=== PATIENT | male | born 1975 | race Caucasian/White ===

== ENCOUNTER 2020-12-18 18:21 | Emergency (ER) | payer OTHER, SELFPAY ==
--- NOTE | 2020-12-18 18:21 | ED.EYEPROB ---
HPI - Eye Problem General Chief complaint: Eye Problems Stated complaint: eye irritation Time Seen by Provider: 12/18/20 18:22 Source: patient, RN notes reviewed and old records reviewed Mode of arrival: ambulatory Limitations: no limitations History of Present Illness HPI Narrative: 45-year-old male presents to the [facility] with complaints of thinking he has something in his right eye. States that he was trimming decorative rocks when he felt something in his eye. Had tried washing it out. No other treatment prior to arrival. Denies any blurry vision or change in vision. MD chief complaint: eye redness Related Data Allergies Allergy/AdvReac Type Severity Reaction Status Date / Time No Known Allergies Allergy Unknown Verified 12/18/20 18:26 Review of Systems Review of Systems: All systems reviewed & are unremarkable except as noted in HPI and below Constitutional: Constitutional: Reports no additional constitutional complaints and Denies chills Eyes: Eyes: Reports as per HPI, Denies change in vision and Denies photophobia ENT: Reports system reviewed and no additional complaints, except as documented Cardiovascular: Cardiovascular: Reports no additional cardiovascular complaints Respiratory: Respiratory: Reports no additional respiratory complaints Gastrointestinal: Gastrointestinal: Reports no additional gastrointestinal complaints Musculoskeletal: Musculoskeletal: Reports no additional musculoskeletal complaints Integumentary/Breasts: Skin/Breast: Reports system reviewed and no additional complaints, except as docu Neurologic: Reports system reviewed and no additional complaints, except as documented Psychiatric: Psychiatric: Reports no additional psychiatric complaints Allergic/Immunologic: Allergic/Immunologic: Reports no additional allergic/immunologic complaints [facility] Past Medical History Medical History (Updated 12/18/20 @ 18:40 by Li Santiago) BMI 25.0-25.9,adult Excessive cerumen in left ear canal Right otitis media Family History Family History Grandparent Hypertension Malignant neoplasm of prostate Mother Hypertension Other Carcinoma of colon Social History Social History (Updated 12/18/20 @ 19:53 by Li Santiago) Smoking status: Never smoker Alcohol intake: current Substance use: never Living arrangements: with family Occupation/Education: occupation 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 There is no relevant family history pertinent to the patient complaint. Exam Const: General: healthy appearing, no acute distress and alert Nutritional Appearance: well nourished Orientation/consciousness: patient oriented x3 Limitations: no limitations HENMT: Head: normal to inspection Ears: hearing grossly normal bilaterally, external ears normal and EAC's normal General nose exam: Normal external nose present and Normal nasal mucous membranes and turbinates present Face and sinus: normal facial exam Mouth: Yes Normal oral and palatal mucosa present Throat: posterior oropharynx normal Eyes: Visual Sherwood: normal visual sherwood by confrontation Alignment and Position: alignment normal Eyelids: eyelids normal and other (Inverted upper lid, unable to see any foreign body) Conjunctivae: conjunctivae normal Cornea: corneas abnormal on the right abrasion linear Pupils: Equal, round and reactive pupils present Direct Ophthalmoscopy: no photophobia Eyes/upper lids images: 1. Abrasion noted without using fluorescein. Neck: Neck: normal visual inspection, no lymphadenopathy and no meningeal signs Chest: Chest palpation & inspection: normal inspection of the chest Resp: Effort & Inspection: normal respiratory effo
[2020-12-18 18:25] VITALS: BP 139/70; PULSE 67; RESP 16; TEMP 36.8; O2SAT 99
== END 2020-12-18 18:45 | disposition home or self-care (01) ==
PROVIDERS: Emergency Provider Nurse Practitioner; PCP Family Medicine
DX: S05.01XA Injury of conjunctiva and corneal abrasion without foreign body, right eye, initial encounter (principal); X58.XXXA Exposure to other specified factors, initial encounter
CPT/HCPCS: 99213; G0463

== ENCOUNTER 2023-07-18 04:20 | Day surgery (SDC) | payer OTHER, SELFPAY ==
[2023-07-18 07:15] VITALS: BP 135/86; PULSE 69; RESP 18; TEMP 36.1; O2SAT 100
[2023-07-18] MEDS: LACTATED RINGERS 1,000 ML 150 ML IV CONT (07:24)
[2023-07-18 08:11] VITALS: BMI 26.0
--- NOTE | 2023-07-18 08:11 | WPDANESEPPF ---
Anes - Initial Pre Proc Eval Procedure: Operation Date: 07/18/23 08:30 Proposed Procedures p Colonoscopy - Geoff Morales MD Date/Time: 07/18/23 08:11 Surgeon: Geoff Morales MD Pre Op Diagnosis: neoplasm screening Patient Data Age: 48 Gender: M Height: Weight: 80.1 kg Last Vital Signs Temp 97 F L 07/18/23 07:15 Pulse 69 07/18/23 07:15 Resp 18 07/18/23 07:15 BP 135/86 07/18/23 07:15 Pulse Ox 100 07/18/23 07:15 O2 Del Method Room Air 07/18/23 07:15 Allergies Allergy/AdvReac Type Severity Reaction Status Date / Time No Known Allergies Allergy Unknown Verified 07/18/23 07:14 Home Medications Medication Instructions Recorded Confirmed Type escitalopram oxalate 10 mg tablet 10 mg PO DAILY #30 tabs 04/04/23 07/01/23 Rx omeprazole 40 mg capsule,delayed 40 mg PO DAILY #90 caps 04/04/23 07/01/23 Rx release Patient hx anesthesia problems: none Family hx anesthesia problems: none Results Review: All pre-operative results and documents have been reviewed as part of the pre-operative evaluation. [facility] Past Medical History Medical History (Updated 04/04/23 @ 09:34 by Jose Gutierrez MD) Anxiety Bilateral tinnitus BMI 25.0-25.9,adult BMI 26.0-26.9,adult Chest congestion Excessive cerumen in left ear canal GERD without esophagitis Right otitis media Family History Family History (Updated 04/04/23 @ 08:48 by LANA Carcamo) Grandparent Hypertension Malignant neoplasm of prostate Mother Hypertension Father , Onset Age: 35 MVC Other Carcinoma of colon Social History Social History (Updated 04/04/23 @ 08:49 by LANA Carcamo) Smoking status: Never smoker Second hand tobacco smoke exposure: Yes Alcohol intake: current Drinks per week: 5 Substance use: never Substance use type: does not use Do You Feel Safe in your Home?: Yes Lack of Transportation: No Lack of Food: Never True Current Housing: I Have Housing Concerned About Future Housing: No Difficulty Paying Gas/Electric Bills: No Difficulty Paying for Meds: No Currently Unemployed: No Education: Trade/Vocational Certificate Difficulty w/ Childcare or Family Care: No Living arrangements: with family Occupation/Education: occupation 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 Gender identity (if verbalized by the patient): Male Spiritual care concerns: No Anes - Eval Final PreProcedure Day of Procedure 07/18/23 08:11 Patient weight: normal Heart: regular rate and rhythm Lungs: clear to auscultation Airway: Mallampati scale class II Neurological: alert and oriented Last oral intake: >/= 8 hours ASA classification: II Emergent: no Anesthetic plan: proceed Anesthesia type and monitoring: general GIVS and standard monitoring Results Review: All pre-operative results and documents have been reviewed as part of the pre-operative evaluation. Informed Consent: The patient's anesthetic plan and its attendant risks and benefits were discussed with the patient/family/POA. Questions were solicited and answers provided to the satisfaction of the patient/family/POA.
--- NOTE | 2023-07-18 08:25 | PM.HPGS ---
History of Present Illness History of Present Illness Consent: Risks, benefits, and alternatives have been discussed and questions answered. Patient agrees to proceed with procedure. Chief complaint: neoplasm screening Narrative: Luis Ireland is a 48 year old male here for first screening colonoscopy Review of Systems Review of Systems: All systems reviewed & are unremarkable except as noted in HPI and below PMFSH Past Medical History Medical History (Updated 07/18/23 @ 08:26 by Geoff Morales MD) Anxiety Bilateral tinnitus BMI 25.0-25.9,adult BMI 26.0-26.9,adult Chest congestion Colon cancer screening Excessive cerumen in left ear canal GERD without esophagitis Right otitis media Family History Family History (Updated 04/04/23 @ 08:48 by LANA Carcamo) Grandparent Hypertension Malignant neoplasm of prostate Mother Hypertension Father , Onset Age: 35 MVC Other Carcinoma of colon Social History Social History (Updated 04/04/23 @ 08:49 by LANA Carcamo) Smoking status: Never smoker Second hand tobacco smoke exposure: Yes Alcohol intake: current Drinks per week: 5 Substance use: never Substance use type: does not use Do You Feel Safe in your Home?: Yes Lack of Transportation: No Lack of Food: Never True Current Housing: I Have Housing Concerned About Future Housing: No Difficulty Paying Gas/Electric Bills: No Difficulty Paying for Meds: No Currently Unemployed: No Education: Trade/Vocational Certificate Difficulty w/ Childcare or Family Care: No Living arrangements: with family Occupation/Education: occupation 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 Gender identity (if verbalized by the patient): Male Spiritual care concerns: No Meds Home Medications and Allergies Home Medications Medication Instructions Recorded Confirmed Type escitalopram oxalate 10 mg tablet 10 mg PO DAILY #30 tabs 04/04/23 07/01/23 Rx omeprazole 40 mg capsule,delayed 40 mg PO DAILY #90 caps 04/04/23 07/01/23 Rx release Allergies Allergy/AdvReac Type Severity Reaction Status Date / Time No Known Allergies Allergy Unknown Verified 07/18/23 07:14 Vital Signs Vital Signs - 24 hr 07/18/23 07:15 Temperature 97 F L Pulse Rate 69 Respiratory Rate 18 Blood Pressure 135/86 Pulse Oximetry 100 Oxygen Delivery Room Air Exam Const: General: comfortable and no acute distress HENMT: Face/Nose/Sinus: Normal nares present Eyes: General: appearance normal, both eyes and all related structures Neck: Neck: no JVD Resp: Auscultation: clear to auscultation bilaterally Cardio: Rate: regular rate Rhythm: regular rhythm GI: Inspection: non-distended GI Palp: Yes Soft to palpation Skin: General skin exam: normal color Neuro: General: gait normal Speech: normal speech Extrem: General: normal to inspection Psych: Mental Status: mental status grossly normal Assessment and Plan Assessment and plan (1) Colon cancer screening: Code(s): Z12.11 - Encounter for screening for malignant neoplasm of colon Status: Acute Assessment and Plan: colonoscopy
[2023-07-18 08:45] VITALS: BP 104/70; PULSE 68; RESP 19; O2SAT 95
[2023-07-18 08:55] VITALS: BP 110/73; PULSE 57; RESP 18; O2SAT 100
[2023-07-18 09:05] VITALS: BP 117/76; PULSE 60; RESP 17; O2SAT 100
== END 2023-07-18 09:12 | disposition home or self-care (01) ==
PROVIDERS: PCP Family Medicine; Visit Provider Internal Medicine Gastroenterology
PROC: 0DJD8ZZ Inspection of Lower Intestinal Tract, Via Natural or Artificial Opening Endoscopic (ICD-10-PCS; CPT 45378; principal; 2023-07-18 08:30)
DX: Z12.11 Encounter for screening for malignant neoplasm of colon (principal); F41.9 Anxiety disorder, unspecified; K21.9 Gastro-esophageal reflux disease without esophagitis; Z80.42 Family history of malignant neoplasm of prostate; Z80.0 Family history of malignant neoplasm of digestive organs
CPT/HCPCS: 45385; 88305; J2704; J7120

== ENCOUNTER 2023-12-27 18:10 | Emergency (ER) | payer OTHER, SELFPAY ==
--- NOTE | 2023-12-27 18:12 | ED_ITS ---
HPI - URI/Sore Throat General Chief Complaint: Upper Respiratory Infection Stated Complaint: sob ,cough Time Seen by Provider: 12/27/23 18:38 Source: patient and RN notes reviewed Mode of arrival: ambulatory Limitations: no limitations History of Present Illness HPI Narrative: 48-year-old male presents with concern for one-week history of cough and shortness of breath. He denies nasal congestion, rhinorrhea, sore throat. He reports he initially had fever and body aches. MD elicited complaint: cough Related Data Allergies Allergy/AdvReac Type Severity Reaction Status Date / Time No Known Allergies Allergy Unknown Verified 12/27/23 18:27 Review of Systems Review of Systems: CONSTITUTIONAL: Reports malaise. Denies current chills, sweats, or fever. EYES: Denies visual changes, redness, or discharge. ENT: Denies rhinorrhea, congestion, sinus pain, otalgia and sore throat. CARDIOVASCULAR: Denies chest pain, palpitations, or edema. RESPIRATORY: Reports cough, dyspnea. GASTROINTESTINAL: Denies abdominal pain, nausea, vomiting, diarrhea SKIN: Denies rash or itching. MUSCULOSKELETAL: Denies current myalgia. NEUROLOGIC: Denies headache. All systems reviewed & are unremarkable except as noted in HPI and below PMFSH Past Medical History Medical History (Updated 12/27/23 @ 18:42 by Li Rodriguez NP) Anxiety Bilateral tinnitus BMI 25.0-25.9,adult BMI 26.0-26.9,adult Chest congestion Colon cancer screening Excessive cerumen in left ear canal GERD without esophagitis Right otitis media Family History Family History (Updated 04/04/23 @ 08:48 by LANA Carcamo) Grandparent Hypertension Malignant neoplasm of prostate Mother Hypertension Father , Onset Age: 35 MVC Other Carcinoma of colon Social History Social History (Updated 04/04/23 @ 08:49 by LANA Carcamo) Smoking status: Never smoker Second hand tobacco smoke exposure: Yes Alcohol intake: current Drinks per week: 5 Substance use: never Substance use type: does not use Do You Feel Safe in your Home?: Yes Lack of Transportation: No Lack of Food: Never True Current Housing: I Have Housing Concerned About Future Housing: No Difficulty Paying Gas/Electric Bills: No Difficulty Paying for Meds: No Currently Unemployed: No Education: Trade/Vocational Certificate Difficulty w/ Childcare or Family Care: No Living arrangements: with family Occupation/Education: occupation 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 Gender identity (if verbalized by the patient): Male Spiritual care concerns: No Comments At time of signature, agree with nursing past medical, surgical, social and family history. There is no relevant family history pertinent to the presenting complaint Exam Narrative: GENERAL: Well-appearing, well-nourished, and in no acute distress. HEAD: Normocephalic EYES: PERRLA, conjunctivae clear ENT: Nares clear. Mucous membranes moist. TM pearly ibrahim with dull light reflex bilaterally; no tragal tenderness. Oropharynx not erythematous without lesions. Tonsils not enlarged and without exudate, no drooling, no trismus, uvula midline. Hoarse voice NECK: Supple. No lymphadenopathy CHEST: Breath sounds tight, otherwise Clear to auscultation, breath sounds equal. No wheezing, rhonchi, rales, or stridor. No respiratory distress, speaks in full sentences. HEART: Regular rate and rhythm. No murmur heard. SKIN: Warm, dry, no rash. NEURO: Alert and oriented x3. PSYCH: Normal mood and affect Course Course Emergency Course: Patient is aware of diagnosis, understands and agrees to treatment plan. Anticipatory guidance given. Patient agrees to follow-up as directed and is aware of reasons to seek care at the emergency department. Portions of this record may have been created with voice recognition software Level of Care: Express Care Visit Vital Signs Vital signs: Reviewed. MDM - URI/Sore Throat MDM Narrative Medical decision making narrative: Differential diagnosis considered: [place] virus, strep pharyngitis, allergic rhinitis, upper respiratory tract infection, sinusitis, rhinosinusitis, nasopharyngitis. viral pharyngitis, otitis media, otitis externa, pneumonia, bronchitis, viral cough syndrome, viral syndrome, and influenza. Exam findings show no acute concerns or changes; patient is non-toxic appearing and is in no distress. Patient is appropriate for outpatient treatment and follow-up. Lab Data Attestation: I reviewed the patient's lab results. Critical Care Time Critical Care Time Critical Care Time: No Discharge Plan Discharge Clinical Impression: Lower respiratory tract infection Patient Disposition: Home, Self-Care Condition: Stable Instructions: Antibiotic Form, Acute Cough (ED) Additional Instructions: Take medication as prescribed Use inhaler as needed for cough, wheezing, shortness of breath or chest tightness. Also, recommend symptomatic treatment includes: rest, fluids, and increase humi dity of the air at home. Recommend Acetaminophen as directed on the bottle to reduce fever, pain, headache. Avoid smoking/second-hand smoke. Please schedule a follow-up visit with your personal physician for further evaluation and treatment within 3-5days. If your symptoms persist, change or worsen significantly before you can contact your personal physician then please, without delay, go to the emergency department for further evaluation. Prescriptions: New methylprednisolone [Medrol (Antoine)] 4 mg tablets,dose pack See Rx Instructions .ROUTE .COMPLEX Qty: 21 0RF Rx Instructions: orally per package directions azithromycin [Zithromax Z-Antoine] 250 mg tablet See Rx Instructions .ROUTE .COMPLEX Qty: 6 0RF Rx Instructions: take 500 mg today (day 1), then 250 mg for 4 days (days 2-5) albuterol sulfate 90 mcg/actuation HFA aerosol inhaler 2 puff INHALATION QID PRN (Reason: shortness of breath or wheezing) Qty: 8.5 0RF No Action omeprazole 40 mg capsule,delayed release(DR/EC) 40 mg PO DAILY Qty: 90 0RF Follow-up/Referrals: Jose Gutierrez MD [Primary Care Provider] - Time of Disposition: 18:45
[2023-12-27 18:22] VITALS: BP 136/79; PULSE 93; RESP 16; TEMP 37.1; O2SAT 97
== END 2023-12-27 18:47 | disposition home or self-care (01) ==
PROVIDERS: Emergency Provider Nurse Practitioner; PCP Family Medicine
DX: J22 Unspecified acute lower respiratory infection (principal); K21.9 Gastro-esophageal reflux disease without esophagitis
CPT/HCPCS: 99213; G0463

== ENCOUNTER 2025-01-16 17:02 | Emergency (ER) | payer OTHER, SELFPAY ==
--- NOTE | 2025-01-16 17:06 | ED_ITS ---
HPI - Skin/Abscess/Foreign Bdy General Chief complaint: Skin/Abscess/Foreign Body Stated complaint: BUMPS ON ARM Time Seen by Provider: 01/16/25 17:06 Source: patient Mode of arrival: ambulatory Limitations: no limitations History of Present Illness HPI narrative: Luis is a 49-year-old male patient presenting to the clinic today with complaints of ?bumps on left arm? for a couple months. He reports the bumps s eem to be spreading up his arm left arm. Non painful, non itchy, or really bothersome. He participates in [employer] and is on the [employer]. Is concerned due to the spreading. Has not done any treatment. No fever, chills, or body aches. No other environmental changes. Related Data Allergies Allergy/AdvReac Type Severity Reaction Status Date / Time No Known Allergies Allergy Unknown Verified 01/16/25 17:09 Review of Systems Review of Systems: Pertinent positives per HPI. Patient denies any fever, chills, headache, visual changes, dizziness, cough, runny nose, sore throat, shortness of breath, chest pain, palpitations, nausea, vomiting, diarrhea, constipation, abdominal pain, or any urinary issues. [facility] Past Medical History Medical History Colon cancer screening Bilateral tinnitus Anxiety BMI 26.0-26.9,adult Chest congestion Excessive cerumen in left ear canal Right otitis media BMI 25.0-25.9,adult GERD without esophagitis Family History Family History Grandparent Hypertension Malignant neoplasm of prostate Mother Hypertension Father , Onset Age: 35 MVC Other Carcinoma of colon Social History Social History Smoking status: Never smoker Second hand tobacco smoke exposure: Yes Alcohol intake: current Drinks per week: 5 Substance use: never Substance use type: does not use Lack of Transportation: No Lack of Food: Never True Current Housing: I Have Housing Concerned About Future Housing: No Difficulty Paying Gas/Electric Bills: No Difficulty Paying for Meds: No Currently Unemployed: No Education: Trade/Vocational Certificate Difficulty w/ Childcare or Family Care: No Living arrangements: with family Occupation/Education: occupation 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 Gender identity (if verbalized by the patient): Male Spiritual care concerns: No Comments At the time of my signature, I reviewed and agree with the nursing past medical, surgical, social, and family history. There is no relevant family history pertinent to the patient complaint. Exam Narrative: General: Well-developed, well nourished, in no apparent distress Head: Normocephalic, atraumatic. Cardio: Regular rate and rhythm, s1 and s2 normal, no murmur appreciated. Resp: Clear to auscultation bilaterally, no rhonchi, rales, wheezing or rubs. Integumentary: [place], warm, and dry, mildly red raised papular/dome like pustular appearing bumps to the left volar forearm that is spreading up the medial arm. Nontender to palpation, no erythema, no drainage Course Course Level of Care: Express Care Visit Vital Signs Vital signs: Vital Signs Temperature 36.6 C 01/16/25 17:12 Pulse Rate 63 01/16/25 17:12 Respiratory Rate 16 01/16/25 17:12 Blood Pressure 161/94 H 01/16/25 17:12 Pulse Oximetry 99 01/16/25 17:12 Temperature 36.6 C 01/16/25 17:12 Pulse Rate 63 01/16/25 17:12 Respiratory Rate 16 01/16/25 17:12 Blood Pressure 161/94 H 01/16/25 17:12 Pulse Oximetry 99 01/16/25 17:12 [facility] Narrative Medical decision making narrative: At the time of visit patient is resting comfortably on the exam table. Patient appears to be nontoxic. Complaints of ?bumps on left arm? for a couple months. He reports the bumps seem to be spreading up his arm left arm. Non painful, non itchy, or really bothersome. He participates in [employer] and is on the [employer]. Is concerned due to the spreading. Has not done any treatment. No fever, chills, or body aches. No other environmental changes. On exam patient has mildly red raised papular/dome like pustular appearing bumps to the left volar forearm that is spreading up the medial arm. Nontender to palpation, no erythema, no drainage. Plan: I suspect patient has folliculitis versus molluscum contagiosum. Will cover for folliculitis at this time and given the prescription for doxycycline and mupirocin cream. If symptoms do not improve diagnosis is likely molluscum contagiosum and recommend follow-up with dermatology for further evaluation. Patient voiced understanding. Expressed to keep the area covered when participating in contact sports as this can be contagious. Supportive measures were discussed with the patient and they voiced understanding discharge instructions and agrees to treatment plan. Return precautions reviewed Differential Diagnosis Differential Diagnosis: Molluscum contagiosum, folliculitis, skin infection, cellulitis, dermatitis, allergic reaction Discharge Plan Discharge Clinical Impression: Folliculitis Patient Disposition: Home Condition: Stable Instructions: Antibiotic Form, Molluscum Contagiosum (ED), Folliculitis (ED) Additional Instructions: I suspect you likely have folliculitis versus molluscum contagiosum. Will cover you for folliculitis in the clinic today. Prescription for doxycycline and mupirocin cream was sent to the pharmacy. Keep area clean and dry If symptoms do not improve it is likely molluscum contagiosum- it can be contagious-keep covered Follow-up with dermatology/PCP if symptoms do not improved. May need further evaluation/treatment Patient Language: Sami Prescriptions: New doxycycline monohydrate 100 mg capsule 100 mg PO BID 7 Days Qty: 14 0RF mupirocin [Centany] 2 % ointment 1 applic topical BID 7 Days Qty: 22 0RF No Action omeprazole 40 mg capsule,delayed release(DR/EC) 40 mg PO DAILY Qty: 90 1RF Follow-up/Referrals: Jose Gutierrez MD [Primary Care Provider, [facility]] Time of Disposition: 17:16 Quality NIHSS Nursing Documentation ED NIHSS nursing documentation: reviewed/agree
[2025-01-16 17:12] VITALS: BP 161/94; PULSE 63; RESP 16; TEMP 36.6; O2SAT 99
== END 2025-01-16 17:22 | disposition home or self-care (01) ==
PROVIDERS: Emergency Provider Nurse Practitioner Family; PCP Family Medicine
DX: L73.9 Follicular disorder, unspecified (principal); K21.9 Gastro-esophageal reflux disease without esophagitis
CPT/HCPCS: 99213; G0463